=== PATIENT | female | born 1945 | race Two or more races ===

== ENCOUNTER 2020-12-12 11:10 | Emergency (ER) | payer MEDICARE, OTHER ==
[~2020-12-12] VITALS: Ht 152.4 cm; Wt 72.1 kg
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
[2020-12-12 13:42] VITALS: BP 124/63
--- NOTE | 2020-12-12 13:42 | NUR ---
Patient discharged to home in stable condition. Written and verbal after care instructions given. Patient verbalizes understanding of instruction.
== END 2020-12-12 13:43 | disposition home or self-care (01) ==
LOC: ER 11:19
DX: S62.633A Displaced fracture of distal phalanx of left middle finger, initial encounter for closed fracture (principal); S60.132A Contusion of left middle finger with damage to nail, initial encounter; W23.0XXA Caught, crushed, jammed, or pinched between moving objects, initial encounter; Y93.89 Activity, other specified; Y92.89 Other specified places as the place of occurrence of the external cause; Y99.8 Other external cause status
CPT/HCPCS: 73140-TC

== ENCOUNTER 2020-12-20 13:00 | Outpatient (CLI) | payer MEDICARE, OTHER | END 2020-12-20 23:59 | disposition home or self-care (01) | LOC: WOU 13:00 | PROVIDERS: ATTEND Surgery | DX: S62.663D Nondisplaced fracture of distal phalanx of left middle finger, subsequent encounter for fracture with routine healing (principal); V48.3XXD Unspecified car occupant injured in noncollision transport accident in nontraffic accident, subsequent encounter; E78.5 Hyperlipidemia, unspecified; S60.132D Contusion of left middle finger with damage to nail, subsequent encounter | CPT/HCPCS: G0463 ==

== ENCOUNTER 2021-11-11 10:53 | Emergency (ER) | payer MEDICARE, OTHER ==
[~2021-11-11] VITALS: Ht 152.4 cm; Wt 71.2 kg
--- NOTE | 2021-11-11 11:07 | NUR ---
Patient came in to the er c/o RLE pain and swelling x 1 week, denies trauma. Ambulatory with steady gait. Kept comfortbale, will continue to monitor accordingly.
[2021-11-11 11:46] LABS: BASOPHILS % (AUTO) 0.5 % (0.0-2.0); EOSINOPHILS % (AUTO) 1.9 % (0.0-6.0); HEMATOCRIT 40 % (33-45); HEMOGLOBIN 13.3 g/dL (11.5-14.8); LYMPHOCYTES # (AUTO) 2.6 K/uL (0.8-4.8); LYMPHOCYTES % (AUTO) 34.9 % (20.0-44.0); MEAN CORPUSCULAR HGB CONC 33 g/dl (31.0-36.0); MEAN CORPUSCULAR VOLUME 86 fL (82-100); MONOCYTES # (AUTO) 0.5 K/uL (0.1-1.30); MONOCYTES % (AUTO) 7.2 % (2.0-12.0); NEUTROPHILS # (AUTO) 4.1 K/uL (1.8-8.9); NEUTROPHILS % (AUTO) 55.5 % (43.0-81.0); PLATELET COUNT (AUTO) 277 K/uL (150-450); RED BLOOD CELL COUNT(AUTO) 4.69 MIL/uL (4.0-5.2); WHITE BLOOD COUNT (AUTO) 7.4 K/uL (4.3-11.0)
[2021-11-11 12:00] LABS: CALCIUM, SERUM 9.2 mg/dL (8.5-10.1); CREATININE 0.8 mg/dL (0.6-1.3); POTASSIUM 4.1 mmol/L (3.5-5.1)
[2021-11-11] MEDS ORDERED: NAPR-1192 PO (12:18)
[2021-11-11 12:25] VITALS: BP 137/74
--- NOTE | 2021-11-11 12:25 | NUR ---
Patient discharged to home in stable condition. Written and verbal after care instructions given. Patient verbalizes understanding of instruction.
== END 2021-11-11 12:25 | disposition home or self-care (01) ==
LOC: ER 11:10
DX: M71.21 Synovial cyst of popliteal space [Baker], right knee (principal)
CPT/HCPCS: 36415; 80048-TC; 85025-TC; 85378-TC; 93971-TC